=== PATIENT | female | born 1950 | race American Indian/Alaskan Native ===

== ENCOUNTER 2021-04-04 10:11 | Inpatient (IN) | payer MEDICARE ==
[2021-04-10 08:42] VITALS: BP 142/57
== END 2021-04-10 14:02 | disposition home health service (06) | DRG 69 ==
LOC: ED 10:11 → 4A 04-05 00:56
PROVIDERS: ADMIT Hospitalist; ATTEND Internal Medicine
DX: G45.9 Transient cerebral ischemic attack, unspecified (principal); E11.42 Type 2 diabetes mellitus with diabetic polyneuropathy; I10 Essential (primary) hypertension; M48.061 Spinal stenosis, lumbar region without neurogenic claudication; F17.210 Nicotine dependence, cigarettes, uncomplicated; R26.81 Unsteadiness on feet; E11.65 Type 2 diabetes mellitus with hyperglycemia; Z90.710 Acquired absence of both cervix and uterus
CPT/HCPCS: 36415; 70450; 70544; 70551; 72157; 72158; 80048; 80061; 81001; 82140; 82805; 82962; 84439; 84443; 84484; 85007; 85025; 85610; 85670; 85730; 87086; 93005; 93306; 99406; G0378; A9270-GY; A9575; J1644; J1815; J7030